=== PATIENT | male | born 1990 | race American Indian/Alaskan Native ===

== ENCOUNTER 2021-02-04 21:47 | Emergency (ER) | payer SELFPAY ==
[2021-02-04 23:53] VITALS: BP 155/101
--- NOTE | 2021-02-05 00:29 | XRay Report ---
RIGHT HAND 3 VIEW(S) INDICATION / CLINICAL INFORMATION: R hand swelling COMPARISON: None available. FINDINGS: BONES / JOINT(S): Mildly comminuted fracture of the base of the ring finger metacarpal with extension to the carpal metacarpal joint. Small displaced fracture fragment is seen dorsal to the wrist on the lateral view. There is mild dorsal subluxation of the ring finger metacarpal relative to the hamate at the CMC joint. There may also be subluxation of the little finger metacarpal relative to the hamat e. No significant arthritis. SOFT TISSUES: Moderate soft tissue swelling on the dorsum of the hand and wrist. ADDITIONAL FINDINGS: None. IMPRESSION: 1. Fracture of the base of the ring finger metacarpal with dorsal subluxation. 2. Possible dorsal subluxation of the little finger metacarpal. 3. Follow-up CT hand without contrast may be helpful for further evaluation. Signer Name: Jes Mims MD Signed: 02/05/2021 12:25 AM Workstation Name: [id number]
[2021-02-05] MEDS ORDERED: ACETAMINOPHEN 325 MG TAB PO ONE (02:26)
== END 2021-02-05 04:15 | disposition left against medical advice (07) ==
LOC: ED 21:47
DX: M79.89 Other specified soft tissue disorders (principal); Z53.21 Procedure and treatment not carried out due to patient leaving prior to being seen by health care provider

== ENCOUNTER 2021-02-05 12:50 | Emergency (ER) | payer SELFPAY | END 2021-02-05 13:45 | disposition left against medical advice (07) | LOC: ED 12:50 | DX: S69.91XA Unspecified injury of right wrist, hand and finger(s), initial encounter (principal); X58.XXXA Exposure to other specified factors, initial encounter; Y93.89 Activity, other specified; Y92.89 Other specified places as the place of occurrence of the external cause; Y99.8 Other external cause status; Z53.21 Procedure and treatment not carried out due to patient leaving prior to being seen by health care provider ==